=== PATIENT | female | born 1975 | race Caucasian/White ===

== ENCOUNTER 2020-01-07 02:15 | Emergency (ER) | payer OTHER ==
[~2020-01-07] VITALS: Ht 149.9 cm; Wt 77.1 kg
[2020-01-07 02:16] VITALS: BP 142/92; Ht 149.9 cm; Wt 77.1 kg
== END 2020-01-07 02:33 | disposition other institution (70) ==
LOC: ED 02:15
DX: Z02.89 Encounter for other administrative examinations (principal)